=== PATIENT | female | born 1965 | race Caucasian/White ===

== ENCOUNTER 2016-04-23 06:37 | Emergency (ER) | payer OTHER ==
[~2016-04-23] VITALS: Ht 165.1 cm; Wt 76.2 kg
[~2016-04-23 06:37] MED LIST: AMOXIL500 MG PO; ANAFRANIL25 MG PO; ATIVAN0.5 MG PO; CIPRODEX 0.3%-7.5 ML TOP; CORTISPORIN TC10 ML OOTO; IBUPROFEN800 MG PO; LEXAPRO 10MG10 MG PO; MEDROL DOSEPAK1 PAC PO; MOTRIN800 MG PO; OMNICEF300 MG PO; PERCOCET 325 MG1 TA2 PO; SEROQUEL300 MG PO; VALIUM2 MG PO; VIBRAMYCIN 100100 MG PO; VITAB121000 PO
--- NOTE | 2016-04-23 07:27 | ED GI/GU/ABDOMINAL COMPLAINT ---
History of Present Illness General Chief Complaint: General Adult Stated Complaint: SIB URGENT CARE FOR BOWEL OBSTRUCTION Source: patient, family Exam Limitations: no limitations Vital Signs & Intake/Output Vital Signs & Intake/Output Vital Signs Date Time Temp Pulse Resp B/P Pulse O2 O2 Flow FiO2 Ox Delivery Rate 04/23 0655 Room Air 04/23 0650 97.4 100 20 125/75 98 Room Air Allergies Coded Allergies: NO KNOWN ALLERGIES (08/26/14) Reconcile Medications Clomipramine HCl (Anafranil) 25 MG CAPSULE 3 CAP PO QPM OCD (Reported) Escitalopram Oxalate (Lexapro 10MG) 10 MG TABLET 40 MG PO QPM MENTAL HEALTH ( Reported) Lorazepam (Ativan) 0.5 MG TAB 1 TAB PO 4 TIMES/DAY PRN ANXIETY (Reported) Methadone Hydrochloride (Methadone HCl) 10 MG TABLET 95 TAB PO DAILY UNKNOWN (Reported) Polyethylene Glycol 3350 (Miralax) 17 GRAM/DOSE POWDER 17 GM PO DAILY CONSTIPATION mix with water, juice, soda, coffee or tea Quetiapine Fumarate (Seroquel) 300 MG TAB 1 TAB PO QPM SLEEP (Reported) Sennosides (Senna) 8.6 MG TABLET 2 TAB PO BID CONSTIPATION Triage Note: PT TO TRIAGE SENT IN BY URGENT CARE FOR BOWEL OBSTRUCTION. PT STATES SHE WAS AT URGENT CARE TWO DAYS AGO, TRIED STOOL SOFTENERS AND NOTHING HAS BEEN BETTER. PT ALSO C/O DIFFICULTY URINATING. STATES "IT IS UNCOMFORTABLE, NOT NECESSARILY PAIN." DENIES N/V. Triage Nurses Notes Reviewed? yes ? N Is pt currently ? No Onset: Gradual Duration: week(s): (2) Timing: recent history Quality/Severity: moderate Location: generalized abdomen Activities at Onset: none Prior Abdominal Problems: none No Modifying Factors: none HPI: This is a 50-year-old female who presents with a two-week history of abdominal distention, constipation. She states that she does not eat much but she is afraid she is obstructed. 2 days ago she was seen at an urgent care center and had an x-ray done. They told her her bowels looked obstructed but it wasn't life-threatening. He is been trying to take prune juice, MiraLAX and over-the- counter stool softeners. She'll then tried [id number] enemas without relief. Patient is on chronic methadone maintenance 95 mg daily. Denies any fever or chills. Denies any weight loss. History of appendectomy and partial colon resection 10 years ago. She's never had a colonoscopy. Past History Travel History Traveled to [place] past 21 day No Medical History Any Pertinent Medical History? 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 No Review of Systems Review of Systems Constitutional: Denies: chills, fever. EENTM: Reports: no symptoms. Respiratory: Denies: cough. Cardiovascular: Denies: chest pain, palpitations. GI: Reports: abdominal pain, bloating, constipation, nausea. Denies: vomiting. Genitourinary: Denies: discharge, dysuria. Musculoskeletal: Reports: no symptoms. Skin: Reports: no symptoms. Neurological/Psychological: Reports: anxiety. Hematologic/Endocrine: Denies: bruising, bleeding. Immunologic/Allergic: Denies: splenectomy. All Other Systems: Reviewed and Negative Physical Exam Physical Exam General Appearance: well developed/nourished, no apparent distress, alert, awake , anxious Head: atraumatic, normal appearance Eyes: Bilateral: normal appearance, PERRL, EOMI. Ears, Nose, Throat, Mouth: hearing grossly normal, moist mucous membrane Neck: normal inspection, supple, full range of motion Respiratory: normal breath sounds, chest non-tender, no respiratory distress Cardiovascular: regular rate/rhythm Peripheral Pulses: 2+ radial (R), 2+ radial (L) Gastrointestinal: normal bowel sounds, soft, non-tender Back: normal inspection, normal range of motion Extremities: normal range of motion Neurologic/Psych: no motor/sensory deficits, awake, alert, oriented x 3 Skin: intact, normal color, warm/dry Core Measures ACS in differential dx? No Severe Sepsis Present: No Septic Shock Present: No Progress Differential Diagnosis: bowel obstruction, OPIATE INDUCED CONSTIPATION, MALIGNANCY Plan of Care: Orders Procedure Date/time Status URINALYSIS 04/23 734 Complete HUMAN BETA HCG SCREEN 04/23 734 Complete COMPREHENSIVE METABOLIC PANEL 04/23 734 Complete CBC WITHOUT DIFFERENTIAL 04/23 734 Complete Laboratory Tests 04/23/16 0816: Anion Gap 7, Estimated GFR > 60, BUN/Creatinine Ratio 8.3, Glucose 78, Calcium 10.3 H, Total Bilirubin 0.5, AST 32, ALT 40, Alkaline Phosphatase 82, Total Protein 8.1, Albumin 4.6, Globulin 3.5, Albumin/Globulin Ratio 1.3, Total Beta HCG NEGATIVE, CBC w Diff MAN DIFF ORDERED, RBC 4.63, MCV 93.1, MCH 31.7 H, RDW 14.6 H, MPV 8.8, Gran % 59.0, Lymphocytes % 34.1, Monocytes % 6.5, Eosinophils % 0, Basophils % 0.4, Absolute Granulocytes 7.0 H, Absolute Lymphocytes 4.0 H, Absolute Monocytes 0.8 H, Absolute Eosinophils 0, Absolute Basophils 0.1, Platelet Estimate VERIFIED BY SMEAR, Anisocytosis 1+, Stomatocytes 1+, PUBS MCHC 34.1 04/23/16 0808: Urine Color YEL, Urine Clarity CLEAR, Urine pH 7.5, Ur Specific [place] 1.015, Urine Protein NEG, Urine Ketones NEG, Urine Nitrite NEG, Urine Bilirubin NEG, Urine Urobilinogen 0.2, Ur Leukocyte Esterase NEG, Ur Microscopic EXAM NOT REQUIRED, Urine Hemoglobin NEG, Urine Glucose NEG Diagnostic Imaging: Viewed by Me: CT Scan. Discussed w/RAD: CT Scan. Initial ED EKG: none Comments: PATIENT: GERALDO FOX PRESENT AGE: 50 PATIENT ACCOUNT NO: [id number] : 66 LOCATION: [facility] ORDERING PHYSICIAN: LESLI WEI MD SERVICE DATE: 04/23/16 EXAM TYPE: CAT - CT ABD & PELVIS W IV CONTRAST EXAMINATION: CT ABDOMEN AND PELVIS WITH CONTRAST CLINICAL INFORMATION: 50-year-old woman with abdominal distention and constipation. COMPARISON: 01/31/[address] TECHNIQUE: Multidetector volumetric imaging was performed of the abdomen and pelvis after the IV administration of 95 mL of Optiray 320 intravenous contrast. Sagittal and coronal reformatted images were obtained on the technologist's workstation. DLP: 380 mGy-cm FINDINGS: Minimal dependent changes are noted at the lung bases. There is a small hiatal hernia. There is diffuse fatty infiltration of the liver with focal sparing around the gallbladder fossa. There is a 1.5 cm hypodense lesion just above the gallbladder fossa that is unchanged and could potentially reflect a hemangioma. The spleen, pancreas, adrenals, kidneys, and gallbladder enhance normally and demonstrate no discrete anatomic abnormality. Nondilated loops of large and small bowel are notable only for a moderate fecal load seen throughout the colon. The terminal ileum is not inflamed and there has been prior appendectomy. The patient has had a prior hysterectomy. Adnexal structures and the bladder are normal in appearance. IMPRESSION: No acute intra-abdominal process. Moderate constipation. DICTATED BY: INDER COULTER MD DATE/TIME DICTATED:04/23/161013 VISUAL JOURNALIST:[place] DATE/TIME TRANSCRIBED:04/23/161013 CONFIDENTIAL, DO NOT COPY WITHOUT APPROPRIATE AUTHORIZATION. <Electronically signed in Other Vendor System> SIGNED BY: INDER COULTER MD 04/23/16 1024 Departure Departure Time of Disposition: 1036 Disposition: HOME OR SELF CARE Condition: Stable Clinical Impression Primary Impression: Constipation Referrals: PATIENT HAS NO PRIMARY CARE DR (PCP/Family) Additional Instructions: TAKE MIRALAX OVER THE COUNTER AND SENEKOT DIRECTED. FOLLOW UP WITH YOUR DOCTOR IN THE OFFICE. RETURN IF WORSE. Departure Forms: Customer Survey General Discharge Information Prescriptions: Current Visit Scripts Sennosides (Senna) 2 TAB PO BID #100 TAB Polyethylene Glycol 3350 (Miralax) 17 GM PO DAILY #255 GM mix with water, juice, soda, coffee or tea
[2016-04-23 08:34] LABS: ABSOLUTE BASOPHIL COUNT 0.1 /CUMM (0.0-0.2); ABSOLUTE EOSINOPHIL COUNT 0 /CUMM (0.0-0.7); ABSOLUTE MONOCYTE COUNT 0.8 /CUMM (0.10-0.60); BASOPHIL % 0.4 % (0.0-2.0); EOSINOPHIL % 0 % (0-5); HEMATOCRIT 43.1 % (37-47); MEAN CORPUSCULAR HGB 31.7 PG (27.0-31.0); MEAN CORPUSCULAR HGB CONC 34.1 G/DL (33.0-37.0); MEAN CORPUSCULAR VOLUME 93.1 FL (81.0-99.0); MEAN PLATELET VOLUME 8.8 FL (7.4-10.4); PLATELET COUNT 329 /CUMM (130-400); RBC DISTRIBUTION WIDTH 14.6 % (11.5-14.5); RED BLOOD CELL CT 4.63 /CUMM (4.20-5.40); WHITE BLOOD CELL COUNT 11.8 /CUMM (4.8-10.8)
[2016-04-23] MEDS ORDERED: METHADONE HCL10 M1 PO (08:42)
--- NOTE | 2016-04-23 10:24 | CT SCAN REPORT ---
EXAMINATION: CT ABDOMEN AND PELVIS WITH CONTRAST CLINICAL INFORMATION: 50-year-old woman with abdominal distention and constipation. COMPARISON: 01/31/[address] TECHNIQUE: Multidetector volumetric imaging was performed of the abdomen and pelvis after the IV administration of 95 mL of Optiray 320 intravenous contrast. Sagittal and coronal reformatted images were obtained on the technologist's workstation. DLP: 380 mGy-cm FINDINGS: Minimal dependent changes are noted at the lung bases. There is a small hiatal hernia. There is diffuse fatty infiltration of the liver with focal sparing around the gallbladder fossa. There is a 1.5 cm hypodense lesion just above the gallbladder fossa that is unchanged and could potentially reflect a hemangioma. The spleen, pancreas, adrenals, kidneys, and gallbladder enhance normally and demonstrate no discrete anatomic abnormality. Nondilated loops of large and small bowel are notable only for a moderate fecal load seen throughout the colon. The terminal ileum is not inflamed and there has been prior appendectomy. The patient has had a prior hysterectomy. Adnexal structures and the bladder are normal in appearance. IMPRESSION: No acute intra-abdominal process. Moderate constipation.
[2016-04-23] MEDS ORDERED: MIRALAX119 GM PO (10:38)
[2016-04-23] MEDS ORDERED: SENNA8.6 M3 PO (10:38)
[2016-04-23 10:50] VITALS: BP 118/70
== END 2016-04-23 11:04 ==
LOC: ERH 06:37
PROVIDERS: Emergency Medicine
DX: K59.00 Constipation, unspecified (principal)
CPT/HCPCS: 74177; 81003; 96360

== ENCOUNTER 2016-04-30 23:07 | Emergency (ER) | payer OTHER ==
[~2016-04-30] VITALS: Ht 165.1 cm; Wt 72.6 kg
[~2016-04-30 23:07] MED LIST changes: +METHADONE HCL10 M1 PO; +MIRALAX119 GM PO; +SENNA8.6 M3 PO
--- NOTE | 2016-04-30 23:31 | ED GI/GU/ABDOMINAL COMPLAINT ---
History of Present Illness General Chief Complaint: Abdominal Pain/Flank Pain Stated Complaint: ABD PAIN Source: patient, family, old records Exam Limitations: no limitations Allergies Coded Allergies: NO KNOWN ALLERGIES (08/26/14) Reconcile Medications Clomipramine HCl (Anafranil) 25 MG CAPSULE 3 CAP PO QPM OCD (Reported) Escitalopram Oxalate (Lexapro 10MG) 10 MG TABLET 40 MG PO QPM MENTAL HEALTH ( Reported) Lorazepam (Ativan) 0.5 MG TAB 1 TAB PO 4 TIMES/DAY PRN ANXIETY (Reported) Methadone Hydrochloride (Methadone HCl) 10 MG TABLET 95 TAB PO DAILY UNKNOWN (Reported) Peg 3350/Na Sulf,Bicarb,Cl/KCl (Golytely Solution) 236-22.74G SOLN.RECON 1 KIT PO X1 PRN CONSTIPATION Polyethylene Glycol 3350 (Miralax) 17 GRAM/DOSE POWDER 17 GM PO DAILY CONSTIPATION mix with water, juice, soda, coffee or tea Quetiapine Fumarate (Seroquel) 300 MG TAB 1 TAB PO QPM SLEEP (Reported) Sennosides (Senna) 8.6 MG TABLET 2 TAB PO BID CONSTIPATION Triage Note: PT TO TRIAGE C/O ABD PAIN AND CONSTIPATION. PT WAS SEEN HERE RECENTLY AND THEY TOLD "TO TRY OTC ENEMAS." PT UNABLE TO RECALL LAST BM. Triage Nurses Notes Reviewed? yes ? n Is pt currently ? No HPI: Patient is a 50-year-old female presents complaining of constipation. Patient reports that she has not had a bowel movement for approximately 1.5-2 weeks. Patient was seen in the emergency department on April 23, had a CT scan which showed constipation, was negative for obstruction and was discharged on over-the -counter medication. Patient reports she has been taking MiraLAX, magnesium citrate, senna, has used 2 enemas with no improvement. Minimal stool passed today. Positive flatus. Intermittent abdominal pain, none currently. Patient takes methadone daily, reports that she has had chronic constipation. Occasional nausea. Intermittent subjective fevers. Patient denies vomiting. (JOANNE GLEZ,MIKE) Vital Signs & Intake/Output Vital Signs & Intake/Output Vital Signs Date Time Temp Pulse Resp B/P Pulse O2 O2 Flow FiO2 Ox Delivery Rate 05/01 0328 97.4 80 18 150/88 97 Room Air 05/01 0130 97.3 92 18 147/83 98 Room Air 05/01 0006 Room Air 04/30 2328 97.8 88 18 166/94 97 Room Air ED Intake and Output 05/01 0000 04/30 1200 Intake Total 0 Output Total Balance 0 Intake, Oral 0 Patient 160 lb Weight Past History Travel History Traveled to [place] past 21 day No Medical History Any Pertinent Medical History? 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 No (MIKE GROVER) Review of Systems Review of Systems Constitutional: Reports: fever (subjective). Denies: chills. EENTM: Reports: no symptoms. Respiratory: Denies: cough, short of breath. Cardiovascular: Denies: chest pain. GI: Reports: see HPI. Genitourinary: Reports: no symptoms. Musculoskeletal: Reports: no symptoms. Skin: Reports: no symptoms. Neurological/Psychological: Reports: anxiety. Hematologic/Endocrine: Reports: no symptoms. Immunologic/Allergic: Reports: no symptoms. (MIKE GROVER) Physical Exam Physical Exam General Appearance: well developed/nourished, alert, awake Head: atraumatic, normal appearance Eyes: Bilateral: normal appearance, PERRL, EOMI. Ears, Nose, Throat, Mouth: hearing grossly normal, moist mucous membrane Neck: normal inspection, supple, full range of motion Respiratory: normal breath sounds, chest non-tender, no respiratory distress, lungs clear Cardiovascular: regular rate/rhythm Gastrointestinal: normal bowel sounds, soft, mild distention. nontender, no guarding, no rebound, no rigidity Back: normal inspection, normal range of motion Extremities: normal range of motion Neurologic/Psych: no motor/sensory deficits, awake, alert, oriented x 3, normal gait, normal mood/affect Skin: intact, normal color, warm/dry Core Measures ACS in differential dx? No Severe Sepsis Present: No Septic Shock Present: No (MIKE GROVER) Progress Differential Diagnosis: sbo, constipation, intra-abdominal infection Diagnostic Imaging: Viewed by Me: Radiology Read. Discussed w/RAD: Radiology Read. Radiology Impression: PATIENT: GERALDO FOX PRESENT AGE: 50 PATIENT ACCOUNT NO: [id number] : 67 LOCATION: [facility] ORDERING PHYSICIAN: MIKE GLEZ SERVICE DATE: 04/30/16 EXAM TYPE: RAD - [id number] VIEWS EXAMINATION: XR ABDOMEN MULTIPLE VIEWS CLINICAL INDICATION: Abdominal distention, minimal bowel movement for 1 to 2 weeks COMPARISON: CT 04/23/2016 TECHNIQUE: AP supine and upright radiographs of the abdomen. FINDINGS: No evidence of intra-abdominal free air. The bowel gas pattern is nonobstructive. There is a large amount of stool in the colon. Visualized lung bases are grossly clear. No acute osseous findings are seen. IMPRESSION: Large volume of stool. Nonobstructive bowel gas pattern. DICTATED BY : JACQUES GONZALES MD DATE/TIME DICTATED:05/01/1640 MATERIALS PLANNING MANAGER: [place] DATE/TIME TRANSCRIBED:05/01/1640 CONFIDENTIAL, DO NOT COPY WITHOUT APPROPRIATE AUTHORIZATION. <Electronically signed in Other Vendor System> SIGNED BY: JACQUES GONZALES MD 05/01/1645 Initial ED EKG: none (MIKE GROVER) Plan of Care: Orders Procedure Date/time Status Enema 05/018 Active URINALYSIS 04/30 2319 Complete LIPASE 04/30 2319 Complete HEPATIC FUNCTION PANEL 04/30 2319 Complete CBC WITHOUT DIFFERENTIAL 04/30 2319 Complete BASIC METABOLIC PANEL 04/30 2319 Complete AMYLASE 04/30 2319 Complete Laboratory Tests 05/01/16 0002: Urinalysis LIGHT H, Urine Color YEL, Urine Clarity HAZY H, Urine pH 6.0, Ur Specific [place] >= 1.030, Urine Protein NEG, Urine Ketones NEG, Urine Nitrite NEG, Urine Bilirubin NEG, Urine Urobilinogen 0.2, Ur Leukocyte Esterase NEG, Ur Microscopic SEDIMENT EXAMINED, Urine RBC 3-5, Urine WBC 1-3 H, Ur Epithelial Cells MOD H, Urine Mucus FEW, Urine Hemoglobin TRACE-INTACT, Urine Glucose NEG 05/01/16 0001: Anion Gap 13, Estimated GFR > 60, BUN/Creatinine Ratio 11.7, Glucose 92, Calcium 10.2, Total Bilirubin 0.4, Direct Bilirubin 0.4, AST 25, ALT 37, Alkaline Phosphatase 72, Total Protein 7.4, Albumin 4.2, Amylase 53, Lipase 105, CBC w Diff MAN DIFF ORDERED, RBC 4.59, MCV 92.4, MCH 31.7 H, RDW 14.4, MPV 9.0, Gran % 50.1, Lymphocytes % 43.1, Monocytes % 5.8, Eosinophils % 0.1, Basophils % 0.9, Absolute Granulocytes 6.0, Segmented Neutrophils 42 L, Absolute Lymphocytes 5.2 H, Lymphocytes 49, Monocytes 7, Absolute Monocytes 0.7 H, Absolute Eosinophils 0, Basophils 2, Absolute Basophils 0.1, Platelet Estimate ADEQUATE, Polychromasia 1+, Ovalocytes FEW, Stomatocytes FEW, PUBS MCHC 34.3, Fld Total RBCs Counted 110 05/01/2016 12:34:47 AM: X-ray reviewed. Significant stool burden, no signs of bowel obstruction. No peritoneal signs on exam. Patient afebrile, no episodes of vomiting. Soap suds enema ordered. WBC 12.0, similar to when patient was seen in the ED 1 week ago[address] Patient had [address] scan at that time which was unremarkable for obstruction or infectious pathology. (MIKE GROVER) Departure Departure Disposition: HOME OR SELF CARE Condition: Stable Clinical Impression Primary Impression: Constipation due to opioid therapy Referrals: DANGELO REYES MD PATIENT HAS NO PRIMARY CARE DR (PCP/Family) Additional Instructions: Take Colace daily. Follow up with Dr. Reyes to establish a primary doctor and for further evaluation. Discuss your problems with constipation with your Methadone prescriber. Return to the ER if fevers, vomiting or worsening of symptoms. Departure Forms: Customer Survey General Discharge Information Prescriptions: Current Visit Scripts Peg 3350/Na Sulf,Bicarb,Cl/KCl (Golytely Solution) 1 KIT PO X1 PRN CONSTIPATION #1 BOT (MIKE GROVER) PA/SAFETY SUPERVISOR Co-Sign Statement Statement: ED Attending supervision documentation- [X] I saw and evaluated the patient. I have also reviewed all the pertinent lab results and diagnostic results. I agree with the findings and the plan of care as documented in the PA's/SAFETY SUPERVISOR's documentation. 2.13.17, 3:24M...pt feels well and would like to go home. She has had small amounts of stooling. labs benign. will continue with laxatives, will follow up if not feeling better. [] I have reviewed the ED Record and agree with the PA's/SAFETY SUPERVISOR's documentation. [] Additions or exceptions (if any) to the PAs/SAFETY SUPERVISOR's note and plan are summarized below: [] (LEE JOHNSON,YOVANA Felix)
[2016-05-01 00:17] LABS: ABSOLUTE BASOPHIL COUNT 0.1 /CUMM (0.0-0.2); ABSOLUTE EOSINOPHIL COUNT 0 /CUMM (0.0-0.7); ABSOLUTE LYMPH COUNT 5.2 /CUMM (1.2-3.4); ABSOLUTE MONOCYTE COUNT 0.7 /CUMM (0.10-0.60); BASOPHIL % 0.9 % (0.0-2.0); EOSINOPHIL % 0.1 % (0-5); GRANULOCYTE % 50.1 % (42.2-75.2); HEMATOCRIT 42.4 % (37-47); MEAN CORPUSCULAR HGB 31.7 PG (27.0-31.0); MEAN CORPUSCULAR HGB CONC 34.3 G/DL (33.0-37.0); MEAN CORPUSCULAR VOLUME 92.4 FL (81.0-99.0); PLATELET COUNT 291 /CUMM (130-400); RBC DISTRIBUTION WIDTH 14.4 % (11.5-14.5); RED BLOOD CELL CT 4.59 /CUMM (4.20-5.40)
[2016-05-01] MEDS ORDERED: GOLYTELY SOLU4000 ML PO (00:46)
--- NOTE | 2016-05-01 00:46 | RADIOLOGY REPORT ---
EXAMINATION: XR ABDOMEN MULTIPLE VIEWS CLINICAL INDICATION: Abdominal distention, minimal bowel movement for 1 to 2 weeks COMPARISON: CT 04/23/2016 TECHNIQUE: AP supine and upright radiographs of the abdomen. FINDINGS: No evidence of intra-abdominal free air. The bowel gas pattern is nonobstructive. There is a large amount of stool in the colon. Visualized lung bases are grossly clear. No acute osseous findings are seen. IMPRESSION: Large volume of stool. Nonobstructive bowel gas pattern.
[2016-05-01 03:28] VITALS: BP 150/88
== END 2016-05-01 03:31 ==
LOC: ERH 23:07
PROVIDERS: Pediatrics
DX: T40.605A Adverse effect of unspecified narcotics, initial encounter (principal)
CPT/HCPCS: 74020; 81001

== ENCOUNTER 2016-05-28 11:55 | Emergency (ER) | payer OTHER ==
[~2016-05-28] VITALS: Ht 165.1 cm; Wt 74.8 kg
[~2016-05-28 11:55] MED LIST changes: +GOLYTELY SOLU4000 ML PO
--- NOTE | 2016-05-28 12:05 | ED GI/GU/ABDOMINAL COMPLAINT ---
History of Present Illness General Chief Complaint: Abdominal Pain/Flank Pain Stated Complaint: ABD PAIN Source: patient Exam Limitations: no limitations Vital Signs & Intake/Output Vital Signs & Intake/Output Vital Signs Date Time Temp Pulse Resp B/P Pulse O2 O2 Flow FiO2 Ox Delivery Rate 05/28 1158 96.4 88 20 149/92 98 Room Air Allergies Coded Allergies: NO KNOWN ALLERGIES (05/28/16) Reconcile Medications Clomipramine HCl (Anafranil) 25 MG CAPSULE 3 CAP PO QPM OCD (Reported) Escitalopram Oxalate (Lexapro 10MG) 10 MG TABLET 40 MG PO QPM MENTAL HEALTH ( Reported) Lorazepam (Ativan) 0.5 MG TAB 1 TAB PO 4 TIMES/DAY PRN ANXIETY (Reported) Methadone Hydrochloride (Methadone HCl) 10 MG TABLET 95 TAB PO DAILY UNKNOWN (Reported) Peg 3350/Na Sulf,Bicarb,Cl/KCl (Golytely Solution) 236-22.74G SOLN.RECON 1 KIT PO X1 PRN CONSTIPATION Polyethylene Glycol 3350 (Miralax) 17 GRAM/DOSE POWDER 17 GM PO DAILY CONSTIPATION mix with water, juice, soda, coffee or tea Quetiapine Fumarate (Seroquel) 300 MG TAB 1 TAB PO QPM SLEEP (Reported) Sennosides (Senna) 8.6 MG TABLET 2 TAB PO BID CONSTIPATION Triage Note: TRIAGE: PT TO ER C/C RECTAL AND ABD PAIN. ONSET YESTERDAY. -N/V/D. LNBM YESTERDAY. REPORTS HAS URINARY S/S OF FEELING LIKE SHE HAS TO GO A LOT BUT DOESN'T HAVE MUCH TO GO. URINARY S/S X ABOUT A MONTH. WAS TREATED FOR UTI TWICE. ALSO HAS HAD RASH "ALL OVER MY BODY AND LEGS" X 1 MONTH. WAS GIVEN CREAM FOR EZCEMA. Triage Nurses Notes Reviewed? yes ? N Is pt currently ? No Onset: Abrupt Duration: day(s): (2) Quality/Severity: dullness, fullness Location: left lower quadrant, right lower quadrant, suprapubic, RECTAL Activities at Onset: none No Modifying Factors: none Associated Symptoms: abdominal pain HPI: 50 year old female who presents to the ER for chief complaint of lower abdominal pain and rectal pain. She reports urinary frequency and feels the need to have a BM. She reports taking over louis counter prunes, enemas as well as a medication prescribed to her for constipation induced opioid constipation. She is currently on methadone maintenance. Past History Travel History Traveled to [place] past 21 day No Medical History Any Pertinent Medical History? see below for history Neurological: NONE EENT: NONE Cardiovascular: NONE Respiratory: NONE Gastrointestinal: GERD Hepatic: NONE Renal: NONE Musculoskeletal: NONE Psychiatric: depression, opioid dependence (on methadone) Endocrine: NONE Blood Disorders: NONE Cancer(s): NONE ELDERLY COMPANION/Reproductive: NONE Surgical History Surgical History: APPY, HYSTERECTOMY PARTIAL COLON RESECTION Psychosocial History Who do you live with Significant Other Services at Home None What is your primary language Bhutanese Tobacco Use: Current Daily Use Daily Tobacco Use Amount/Type: => 5 Cigarettes daily ETOH Use: denies use Illicit Drug Use: denies illicit drug use Family History Hx Contributory? No Review of Systems Review of Systems Constitutional: Denies: chills, fever. EENTM: Reports: no symptoms. Respiratory: Denies: cough, short of breath. Cardiovascular: Denies: chest pain, palpitations. GI: Reports: abdominal pain, bloating, diarrhea. Genitourinary: Reports: frequency. Musculoskeletal: Reports: no symptoms. Skin: Reports: no symptoms. Neurological/Psychological: Reports: anxiety. Hematologic/Endocrine: Denies: bruising, bleeding, polyuria, polydipsia. Immunologic/Allergic: Denies: splenectomy. All Other Systems: Reviewed and Negative Physical Exam Physical Exam General Appearance: well developed/nourished, alert, awake, anxious, mild distress Head: atraumatic, normal appearance Eyes: Bilateral: normal appearance, PERRL, EOMI. Ears, Nose, Throat, Mouth: hearing grossly normal, moist mucous membrane Neck: normal inspection, supple, full range of motion Respiratory: normal breath sounds, chest non-tender, no respiratory distress Cardiovascular: regular rate/rhythm Peripheral Pulses: 2+ radial (R), 2+ radial (L) Gastrointestinal: normal bowel sounds, soft, non-tender Extremities: normal range of motion Neurologic/Psych: no motor/sensory deficits, awake, alert, normal gait Core Measures ACS in differential dx? No Severe Sepsis Present: No Septic Shock Present: No Progress Differential Diagnosis: SBO, CONSTIPATION Plan of Care: Orders Procedure Date/time Status LACTIC ACID 05/28 1514 Active XRY-ABD MULTI VIEW W/PA CHEST 05/28 1214 Active URINALYSIS 05/28 1214 Complete LIPASE 05/28 1214 Complete LACTIC ACID 05/28 1213 Complete C-REACTIVE PROTEIN 05/28 1213 Complete COMPREHENSIVE METABOLIC PANEL 05/28 1213 Complete CBC WITHOUT DIFFERENTIAL 05/28 1213 Complete Current Medications Sig/Eri Start time Last Medication Dose Stop Time Status Admin Oxycodone/ 1 TAB ONCE ONE 05/28 1415 UNVr Acetaminophen 05/28 1416 (Percocet) Laboratory Tests 05/28/16 1311: Urine Color YEL, Urine Clarity CLEAR, Urine pH 6.0, Ur Specific [place] >= 1.030 , Urine Protein NEG, Urine Ketones NEG, Urine Nitrite NEG, Urine Bilirubin NEG, Urine Urobilinogen 0.2, Ur Leukocyte Esterase NEG, Ur Microscopic EXAM NOT REQUIRED, Urine Hemoglobin NEG, Urine Glucose NEG 05/28/16 1245: Anion Gap 12, Estimated GFR > 60, BUN/Creatinine Ratio 13.3, Glucose 90, Lactic Acid 1.7, Calcium 9.6, Total Bilirubin 0.4, AST 57 H, ALT 62 H, Alkaline Phosphatase 105, C-Reactive Prot, Quant 5.0 H, Total Protein 7.2, Albumin 3.9, Globulin 3.3, Albumin/Globulin Ratio 1.2, Lipase 63, CBC w Diff NO MAN DIFF REQ, RBC 4.19 L, MCV 93.5, MCH 31.3 H, RDW 14.1, MPV 9.1, Gran % 53.0, Lymphocytes % 39.5, Monocytes % 7.1, Eosinophils % 0.1, Basophils % 0.3, Absolute Granulocytes 5.8, Absolute Lymphocytes 4.3 H, Absolute Monocytes 0.8 H, Absolute Eosinophils 0, Absolute Basophils 0, PUBS MCHC 33.5 Diagnostic Imaging: Viewed by Me: Radiology Read. Discussed w/RAD: Radiology Read. Initial ED EKG: none Comments: PATIENT: GERALDO FOX PRESENT AGE: 50 PATIENT ACCOUNT NO: [id number] : 66 LOCATION: [facility] ORDERING PHYSICIAN: LESLI WEI MD SERVICE DATE: 05/28/16 EXAM TYPE: RAD - XRY-ABD MULTI VIEW W/PA CHEST EXAMINATION: XR ABDOMEN WITH PA CHEST CLINICAL INDICATION: Lower abdominal pain/cramping. Assess for obstruction. COMPARISON: Abdominal radiography 04/21/2016. TECHNIQUE: 2 views of the abdomen and one view of the chest were obtained. FINDINGS: No pneumoperitoneum. No portal venous gas. No dilated loops of large or small bowel. Small to moderate volume of stool throughout the colon. No new suspicious abdominal calcifications. Unchanged subcentimeter calcific foci over the bilateral iliac bones. Visualized portions of the lungs demonstrate no lobar consolidation suspicious for pneumonia or pulmonary edema. IMPRESSION: Nonobstructive bowel gas pattern. Small to moderate volume of stool within the colon. DICTATED BY: EASTON KUMAR MD DATE/TIME DICTATED:05/28/161350 VALUE STREAM COACH:[place] DATE/TIME TRANSCRIBED:05/28/161350 CONFIDENTIAL, DO NOT COPY WITHOUT APPROPRIATE AUTHORIZATION. <Electronically signed in Other Vendor System> SIGNED BY: EASTON KUMAR MD 05/28/16 1416 Departure Departure Time of Disposition: 1401 Disposition: HOME OR SELF CARE Condition: Stable Clinical Impression Primary Impression: Chronic abdominal pain Secondary Impressions: Constipation Referrals: PATIENT HAS NO PRIMARY CARE DR (PCP/Family) Additional Instructions: TAKE THE GOLYTELY AT HOME AND USE OVER THE COUNTER ENEMAS. FOLLOW UP WITH YOUR GI APPOINTMENT WITH DR BAEZ IN THE OFFICE. Departure Forms: Customer Survey General Discharge Information
[2016-05-28 12:56] LABS: ABSOLUTE EOSINOPHIL COUNT 0 /CUMM (0.0-0.7); ABSOLUTE LYMPH COUNT 4.3 /CUMM (1.2-3.4); EOSINOPHIL % 0.1 % (0-5); HEMATOCRIT 39.2 % (37-47); MEAN PLATELET VOLUME 9.1 FL (7.4-10.4)
[2016-05-28 13:00] LABS: ABSOLUTE BASOPHIL COUNT 0 /CUMM (0.0-0.2); ABSOLUTE GRANULOCYTE CT 5.8 /CUMM (1.4-6.5); ABSOLUTE MONOCYTE COUNT 0.8 /CUMM (0.10-0.60); BASOPHIL % 0.3 % (0.0-2.0); MEAN CORPUSCULAR HGB 31.3 PG (27.0-31.0); MEAN CORPUSCULAR HGB CONC 33.5 G/DL (33.0-37.0); MEAN CORPUSCULAR VOLUME 93.5 FL (81.0-99.0); PLATELET COUNT 311 /CUMM (130-400); RBC DISTRIBUTION WIDTH 14.1 % (11.5-14.5); RED BLOOD CELL CT 4.19 /CUMM (4.20-5.40); WHITE BLOOD CELL COUNT 10.9 /CUMM (4.8-10.8)
[2016-05-28 14:05] VITALS: BP 140/91
--- NOTE | 2016-05-28 14:16 | RADIOLOGY REPORT ---
EXAMINATION: XR ABDOMEN WITH PA CHEST CLINICAL INDICATION: Lower abdominal pain/cramping. Assess for obstruction. COMPARISON: Abdominal radiography 04/21/2016. TECHNIQUE: 2 views of the abdomen and one view of the chest were obtained. FINDINGS: No pneumoperitoneum. No portal venous gas. No dilated loops of large or small bowel. Small to moderate volume of stool throughout the colon. No new suspicious abdominal calcifications. Unchanged subcentimeter calcific foci over the bilateral iliac bones. Visualized portions of the lungs demonstrate no lobar consolidation suspicious for pneumonia or pulmonary edema. IMPRESSION: Nonobstructive bowel gas pattern. Small to moderate volume of stool within the colon.
== END 2016-05-28 14:29 ==
LOC: ERH 11:55
PROVIDERS: Emergency Medicine
DX: K59.00 Constipation, unspecified (principal)
CPT/HCPCS: 74022; 81003; 96374; 96375; J1885

== ENCOUNTER 2016-06-19 00:15 | Emergency (ER) | payer OTHER ==
[~2016-06-19] VITALS: Ht 165.1 cm; Wt 66.7 kg
--- NOTE | 2016-06-19 00:24 | ED GI/GU/ABDOMINAL COMPLAINT ---
History of Present Illness General Chief Complaint: General Adult Stated Complaint: "CONSTIPATION FOR COUPLE OF MONTHSFEEL DEHYDRATED" Source: patient Exam Limitations: no limitations Vital Signs & Intake/Output Vital Signs & Intake/Output Vital Signs Date Time Temp Pulse Resp B/P Pulse O2 O2 Flow FiO2 Ox Delivery Rate 06/20 35 97 Room Air 06/19 33 98.3 89 18 173/72 100 Room Air Allergies Coded Allergies: NO KNOWN ALLERGIES (05/28/16) Reconcile Medications Clomipramine HCl (Anafranil) 25 MG CAPSULE 3 CAP PO QPM OCD (Reported) Escitalopram Oxalate (Lexapro 10MG) 10 MG TABLET 40 MG PO QPM MENTAL HEALTH ( Reported) Hydrocortisone 2.5 % OINT...G. 1 TRISTAN TOP TID PRN RASH apply to affected area(s) X 7 DAYS MAX Hydrocortisone/Pramoxine (Proctofoam-Hc 1%-1% Foam) 1 %-1 % FOAM 1 A RC BID PRN IRRITATED RECTUM Lorazepam (Ativan) 0.5 MG TAB 1 TAB PO 4 TIMES/DAY PRN ANXIETY (Reported) Methadone Hydrochloride (Methadone HCl) 10 MG TABLET 95 TAB PO DAILY UNKNOWN (Reported) Peg 3350/Na Sulf,Bicarb,Cl/KCl (Golytely Solution) 236-22.74G SOLN.RECON 1 KIT PO X1 PRN CONSTIPATION Polyethylene Glycol 3350 (Miralax) 17 GRAM/DOSE POWDER 17 GM PO DAILY CONSTIPATION mix with water, juice, soda, coffee or tea Quetiapine Fumarate (Seroquel) 300 MG TAB 1 TAB PO QPM SLEEP (Reported) Sennosides (Senna) 8.6 MG TABLET 2 TAB PO BID CONSTIPATION Triage Nurses Notes Reviewed? yes ? n Is pt currently ? No Onset: Gradual Duration: week(s):, waxing and waning Timing: recent history Location: generalized abdomen Radiation: rectal irritation. "I feel something." Activities at Onset: pt drank a bottle of mag citrate Prior Abdominal Problems: similar symptoms Modifying Factors: Worsens With: defecating. Associated Symptoms: loose watery stools today HPI: 50 yo woman h/o ocd, on methadone, h/o constipation, presents with loose watery stools after drinking a bottle of magnesium citrate earlier today. She notes, "I had loose watery stools today but I still feel irritation in my rectum, like I still have stool there." She has mild abdominal cramps, has no abdominal pain, nausea, vomiting, dysuria, vaginal discharge. She is otherwise well. Past History Travel History Traveled to [place] past 21 day No Medical History Any Pertinent Medical History? 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 No Review of Systems Review of Systems Constitutional: Reports: no symptoms. EENTM: Reports: no symptoms. Respiratory: Reports: no symptoms. Cardiovascular: Reports: no symptoms. GI: Reports: no symptoms. Genitourinary: Reports: no symptoms. Musculoskeletal: Reports: no symptoms. Skin: Reports: no symptoms. Neurological/Psychological: Reports: no symptoms. Hematologic/Endocrine: Reports: no symptoms. Immunologic/Allergic: Reports: no symptoms. All Other Systems: Reviewed and Negative Physical Exam Physical Exam General Appearance: well developed/nourished, mild distress Head: atraumatic, normal appearance Eyes: Bilateral: normal appearance. Ears, Nose, Throat, Mouth: hearing grossly normal, moist mucous membrane Neck: normal inspection, supple, full range of motion Respiratory: normal breath sounds, chest non-tender, no respiratory distress, quiet respiration, lungs clear Cardiovascular: regular rate/rhythm Gastrointestinal: normal bowel sounds, soft, non-tender Rectal: no stool in recal vault. guiac negative Back: normal inspection Extremities: normal range of motion Neurologic/Psych: no motor/sensory deficits, awake, alert, oriented x 3 Skin: intact, normal color, warm/dry Core Measures ACS in differential dx? No Severe Sepsis Present: No Septic Shock Present: No Progress Differential Diagnosis: constipation vs hemorrhoids vs laxative abuse vs other. Plan of Care: rectal exam benign... labs x 3 this year were all benign... discussed at length with patient... pt will pursue gentle diet for next 24 hours... if not improved, pt to return to ED for further care. Initial ED EKG: none Departure Departure Disposition: HOME OR SELF CARE Condition: Stable Clinical Impression Primary Impression: Chronic abdominal pain Secondary Impressions: Frequent use of laxatives, Rash Referrals: PATIENT HAS NO PRIMARY CARE DR (PCP/Family) Departure Forms: Customer Survey General Discharge Information Prescriptions: Current Visit Scripts Hydrocortisone/Pramoxine (Proctofoam-Hc 1%-1% Foam) 1 A RC BID PRN IRRITATED RECTUM #10 GM Ref 1 Hydrocortisone 1 TRISTAN TOP TID PRN RASH #30 GM apply to affected area(s) X 7 DAYS MAX Comments pt with benign labs x 3 this year. Benign exam. No stool in rectal vault... Likely patient having side effects with excessive laxatives... discussed at length with patient. She will follow up with her pmd... She asks for cream for her skin rash, likley eczema, and I will prescribe proctofoam for sensitive rectal region.
[2016-06-19 00:34] VITALS: BP 173/72
[2016-06-19] MEDS ORDERED: PROCTOFOAM-HC 110 GM RC (00:41)
[2016-06-19] MEDS ORDERED: HYDROCORTISO453.6 GM TOP (00:42)
== END 2016-06-19 00:44 ==
LOC: ERH 00:15
DX: G89.29 Other chronic pain (principal); R10.9 Unspecified abdominal pain; R21 Rash and other nonspecific skin eruption; F19.90 Other psychoactive substance use, unspecified, uncomplicated

== ENCOUNTER 2016-07-23 13:41 | Emergency (ER) | payer OTHER ==
[~2016-07-23] VITALS: Ht 165.1 cm; Wt 72.6 kg
[~2016-07-23 13:41] MED LIST changes: +HYDROCORTISO453.6 GM TOP; +PROCTOFOAM-HC 110 GM RC
[2016-07-23 13:55] VITALS: BP 128/85
--- NOTE | 2016-07-23 14:53 | ED GENERAL ADULT ---
History of Present Illness General Chief Complaint: General Adult Stated Complaint: WITHDRAWAL FROM METHADONE Source: patient Exam Limitations: no limitations Allergies Coded Allergies: NO KNOWN ALLERGIES (05/28/16) Reconcile Medications Clomipramine HCl (Anafranil) 25 MG CAPSULE 3 CAP PO QPM OCD (Reported) Escitalopram Oxalate (Lexapro 10MG) 10 MG TABLET 40 MG PO QPM MENTAL HEALTH ( Reported) Hydrocortisone 2.5 % OINT...G. 1 TRISTAN TOP TID PRN RASH apply to affected area(s) X 7 DAYS MAX Hydrocortisone/Pramoxine (Proctofoam-Hc 1%-1% Foam) 1 %-1 % FOAM 1 A RC BID PRN IRRITATED RECTUM Lorazepam (Ativan) 0.5 MG TAB 1 TAB PO 4 TIMES/DAY PRN ANXIETY (Reported) Methadone Hydrochloride (Methadone HCl) 10 MG TABLET 95 TAB PO DAILY UNKNOWN (Reported) Peg 3350/Na Sulf,Bicarb,Cl/KCl (Golytely Solution) 236-22.74G SOLN.RECON 1 KIT PO X1 PRN CONSTIPATION Polyethylene Glycol 3350 (Miralax) 17 GRAM/DOSE POWDER 17 GM PO DAILY CONSTIPATION mix with water, juice, soda, coffee or tea Quetiapine Fumarate (Seroquel) 300 MG TAB 1 TAB PO QPM SLEEP (Reported) Sennosides (Senna) 8.6 MG TABLET 2 TAB PO BID CONSTIPATION Triage Note: PT STATES SHE IS TRYING TO DETOX HERSELF FROM METHADONE, LAST DOSE WAS 1 WEEK AGO 95 MG. PT STATES SHE WAS CONSTIPATED, TOOK MAG CITRATE AND NOW SHE HAS DIARRHEA. PT C/O ABDOMINAL PAIN WITH NAUSEA Triage Nurses Notes Reviewed? yes HPI: This patient is a 50-year-old female who presented to the emergency department today for evaluation of possible withdrawal symptoms from methadone. The patient reported that she was trying to detox herself from methadone. She reported that her last dose from the clinic was last week. She reported that she started having withdrawal symptoms, so her significant other gave her a couple doses of methadone yesterday and a few days ago. The patient is reporting chills, nausea, lower abdominal pain, urinary burning, vaginal discharge which is clear with no odor or itching, and weakness. The patient reported that she was told that if she needs more methadone she needs to be admitted to the hospital, so she came to the emergency department. She also reported approximately 45 minutes of intermittent, midsternal chest pain which came and went on its own without any intervention. No difficulty breathing. No fevers. She does report constipation. (FRANCISCO PEREZ PA-C) Vital Signs & Intake/Output Vital Signs & Intake/Output Vital Signs Date Time Temp Pulse Resp B/P B/P Pulse O2 O2 Flow FiO2 Mean Ox Delivery Rate 07/23 1426 Room Air 07/23 1355 98.1 92 20 128/85 99 Room Air ED Intake and Output 07/24 0000 07/23 1200 Intake Total Output Total Balance Patient 160 lb Weight Past History Travel History Traveled to [place] past 21 day No Medical History Any Pertinent Medical History? 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 No (FRANCISCO PEREZ PA-C) Review of Systems Review of Systems Constitutional: Reports: see HPI. EENTM: Reports: no symptoms. Respiratory: Reports: no symptoms. Cardiovascular: Reports: see HPI. GI: Reports: see HPI. Genitourinary: Reports: see HPI. Musculoskeletal: Reports: no symptoms. Skin: Reports: no symptoms. Neurological/Psychological: Reports: no symptoms. All Other Systems: Reviewed and Negative (FRANCISCO PEREZ PA-C) Physical Exam Physical Exam General Appearance: well developed/nourished, no apparent distress, alert, awake Comments: Patient left AGAINST MEDICAL ADVICE prior to the physical exam being conducted. Core Measures ACS in differential dx? No CVA/TIA Diagnosis: No Severe Sepsis Present: No Septic Shock Present: No (FRANCISCO PEREZ PA-C) Progress Differential Diagnoses I considered the following diagnoses in my evaluation of the patient: [Drug intoxication, drug overdose, drug withdrawal, alcohol intoxication, alcohol withdrawal, appendicitis, urinary tract infection, pyelonephritis] Initial ED EKG: none Comments: 07/23/2016 3:04:07 PM: I discussed with this patient given her symptoms I would like to do an abdominal workup with lab work and possible imaging to rule out any intra-abdominal processes due to her pain. I also discussed this patient at this hospital does not admit for opiate detox. I offered symptomatic treatment here in the emergency department as well as symptomatic treatment to be given in prescription form upon discharge as well as to give her resources for detox programs in the area. The patient refused to stay for any workup. She reported , "if you are not going to help give me methadone, I do not want to be here." (CHRIS KEARNS,FRANCISCO) Plan of Care: Orders Procedure Date/time Status EKG 07/23 1444 Active Laboratory Tests 07/23/16 1745: Lactic Acid Cancelled 07/23/16 1445: Serum Alcohol Cancelled 07/23/16 1445: Sodium Cancelled, Potassium Cancelled, Chloride Cancelled, Carbon Dioxide Cancelled, Anion Gap Cancelled, BUN Cancelled, Creatinine Cancelled, BUN/ Creatinine Ratio Cancelled, Glucose Cancelled, Lactic Acid Cancelled, Calcium Cancelled, Total Bilirubin Cancelled, Direct Bilirubin Cancelled, AST Cancelled, ALT Cancelled, Alkaline Phosphatase Cancelled, Troponin I Cancelled, Total Protein Cancelled, Albumin Cancelled, Globulin Cancelled, Albumin/Globulin Ratio Cancelled, Amylase Cancelled, Lipase Cancelled, CBC w Diff Cancelled, WBC Cancelled, RBC Cancelled, Hgb Cancelled, Hct Cancelled, MCV Cancelled, MCH Cancelled, RDW Cancelled, Plt Count Cancelled, MPV Cancelled, PUBS MCHC Cancelled, Methadone Screen Cancelled, Barbiturate Screen Cancelled, Ur Phencyclidine Scrn Cancelled, Amphetamines Screen Cancelled, U Benzodiazepines Scrn Cancelled, Urine Cocaine Screen Cancelled, Urine Cannabis Screen Cancelled, Urine Color Cancelled, Urine Clarity Cancelled, Urine pH Cancelled, Ur Specific [place] Cancelled, Urine Protein Cancelled, Urine Ketones Cancelled, Urine Nitrite Cancelled, Urine Bilirubin Cancelled, Urine Urobilinogen Cancelled, Ur Leukocyte Esterase Cancelled, Ur Microscopic Cancelled, Urine Hemoglobin Cancelled, Urine Glucose Cancelled, Urine Test Cancelled Microbiology 07/23 1444 URINE ROUT: Urine Culture - CAN Cancelled: NOT REC'D IN LAB - PATIENT DEPARTED ER Departure Departure Disposition: LEFT AGAINST MEDICAL ADVICE Condition: Stable Clinical Impression Primary Impression: Abdominal pain Qualifiers: Abdominal location: unspecified location Qualified Code: R10.9 - Unspecified abdominal pain Referrals: PATIENT HAS NO PRIMARY CARE DR (PCP/Family) Departure Forms: Customer Survey General Discharge Information (FRANCISCO PEREZ PA-C) PA/BUSINESS IMPROVEMENT MANAGER Co-Sign Statement Statement: ED Attending supervision documentation- I saw and evaluated the patient. I have also reviewed all the pertinent lab results and diagnostic results. I agree with the findings and the plan of care as documented in the PA's/BUSINESS IMPROVEMENT MANAGER's documentation. x I have reviewed the ED Record and agree with the PA's/BUSINESS IMPROVEMENT MANAGER's documentation. [] Additions or exceptions (if any) to the PAs/BUSINESS IMPROVEMENT MANAGER's note and plan are summarized below: [] (RAO JOHNSON,MELVIN) Critical Care Note Critical Care Note Critical Care Time: non-applicable (FRANCISCO PEREZ PA-C)
== END 2016-07-23 14:55 | disposition left against medical advice (07) ==
LOC: ERH 13:41
DX: R10.30 Lower abdominal pain, unspecified (principal); R07.89 Other chest pain
CPT/HCPCS: 80307; 81025; 87086; G0480

== ENCOUNTER 2016-08-06 13:50 | Emergency (ER) | payer OTHER ==
[2016-08-06 13:57] VITALS: BP 117/80
--- NOTE | 2016-08-06 14:26 | ED GI/GU/ABDOMINAL COMPLAINT ---
History of Present Illness General Chief Complaint: General Adult Stated Complaint: CONSTIPATION, HEMMROIDS Source: patient, family Exam Limitations: no limitations Vital Signs & Intake/Output Vital Signs & Intake/Output Vital Signs Date Time Temp Pulse Resp B/P B/P Pulse O2 O2 Flow FiO2 Mean Ox Delivery Rate 08/06 1357 97.8 106 16 117/80 99 Room Air Allergies Coded Allergies: NO KNOWN ALLERGIES (05/28/16) Reconcile Medications Clomipramine HCl (Anafranil) 25 MG CAPSULE 3 CAP PO QPM OCD (Reported) Escitalopram Oxalate (Lexapro 10MG) 10 MG TABLET 40 MG PO QPM MENTAL HEALTH ( Reported) Hydrocortisone 2.5 % OINT...G. 1 TRISTAN TOP TID PRN RASH apply to affected area(s) X 7 DAYS MAX Hydrocortisone/Pramoxine (Proctofoam-Hc 1%-1% Foam) 1 %-1 % FOAM 1 A RC BID PRN IRRITATED RECTUM Lidocaine HCl (Lidocaine HCl Viscous) 2 % SOLUTION 15 ML PO 4 TIMES/DAY HEMORRHOIDS APPLY TO AFFECTED AREAS Lorazepam (Ativan) 0.5 MG TAB 1 TAB PO 4 TIMES/DAY PRN ANXIETY (Reported) Methadone Hydrochloride (Methadone HCl) 10 MG TABLET 95 TAB PO DAILY UNKNOWN (Reported) Peg 3350/Na Sulf,Bicarb,Cl/KCl (Golytely Solution) 236-22.74G SOLN.RECON 1 KIT PO X1 PRN CONSTIPATION Polyethylene Glycol 3350 (Miralax) 17 GRAM/DOSE POWDER 17 GM PO DAILY CONSTIPATION mix with water, juice, soda, coffee or tea Quetiapine Fumarate (Seroquel) 300 MG TAB 1 TAB PO QPM SLEEP (Reported) Sennosides (Senna) 8.6 MG TABLET 2 TAB PO BID CONSTIPATION Tylenol With Codeine (Tylenol With Codeine #3 Tablet) 300 MG-30 MG TABLET 1 TAB PO BIDP PRN PAIN Triage Note: PT TO ED WITH CONSTIPATION AND HEMORRHOID PAIN X1 WEEK. STATES SHE HAS BEEN USING MOTRIN AND PREPARATION H WITH NO RELIEF. LAST BM X3 DAYS AGO. Triage Nurses Notes Reviewed? yes ? n Is pt currently ? No Onset: Gradual Duration: constant Timing: recent history Quality/Severity: burning, severe, stabbing, throbbing Severity Numbers: 10 Radiation: no radiation HPI: Patient is a 50-year-old female with a past medical history of opiate dependency who presents emergency room with concerns of an external hemorrhoid for the past week and which patient states that she was prescribed ibuprofen and Preparation H with no relief of symptoms. Patient states that she has tried to establish a per doctor's appointment with battery wrecker operator Dr. Martinez in which the next appointment is in August. Patient states that the symptoms feel no better with medications. Patient's last bowel movement was 2 days ago. Patient denies any fever chills melena or bright red blood after bowel movement. Denies any abdominal pain is otherwise without complaints (DORA SCHERER) Past History Travel History Traveled to [place] past 21 day No Medical History Any Pertinent Medical History? 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 No (DORA SCHERER) Review of Systems Review of Systems Constitutional: Reports: no symptoms. EENTM: Reports: no symptoms. Respiratory: Reports: no symptoms. Cardiovascular: Reports: no symptoms. GI: Reports: see HPI. Denies: abdominal pain. Genitourinary: Reports: see HPI. Musculoskeletal: Reports: no symptoms. Skin: Reports: no symptoms. Neurological/Psychological: Reports: no symptoms. Hematologic/Endocrine: Reports: no symptoms. Immunologic/Allergic: Reports: no symptoms. All Other Systems: Reviewed and Negative (DORA SCHERER) Physical Exam Physical Exam General Appearance: no apparent distress, alert, comfortable Gastrointestinal: normal bowel sounds, soft, non-tender Comments: Well-developed well-nourished person in no acute distress HEENT: Normal EENT exam, Neck: Supple, no lymphadenopathy, normal range of motion without pain or tenderness Back: Nontender, no CVA tenderness. Cardiovascular: Regular rate and rhythms no murmurs rubs or gallops, normal JVP Respiratory: Chest nontender. No respiratory distress.breath sounds clear to auscultation bilaterally Abdomen: Soft, nontender nondistended, no appreciable organomegaly. Normal bowel sounds. No ascites Extremity: No edema, no calf tenderness to palpation, normal and equal pulses. Neuro: Alert oriented x3, motor sensory normal, Rectal noted minimal nonthrombosed external hemorrhoid no active bleeding moderate point tenderness noted. No surrounding erythema warm fluctuance or induration. Rectal tone intact Skin: No appreciable rash on exposed skin, skin is warm and dry. Psych: Mood and affect is normal, memory and judgment is normal. Core Measures ACS in differential dx? No Severe Sepsis Present: No Septic Shock Present: No (DORA SCHERER) Progress Differential Diagnosis: appendicitis, biliary colic, bowel obstruction, colon cancer, cholecystitis, diverticulitis, endometritis, esophageal varices, gastritis, hepatitis, hernia, hemorrhoids, ischemic bowel, inflamm bowel dis, kidney stone, Smita-Derek tear, PUD/GERD, perforated viscous, SBO, threatened AB, UTI/pyelo Plan of Care: On examination patient has no concerns of perirectal or rectal abscess. Patient does have concerns of minimal nonthrombosed hemorrhoids however patient had requested narcotics in which I discussed with patient that narcotic medication would make patient constipated to worsening her hemorrhoids, patient was given a very short prescription of opiates to improve her breakthrough pain relief patient was strongly advised to follow-up with her battery wrecker operator. Initial ED EKG: none (DORA SCHERER) Departure Departure Disposition: HOME OR SELF CARE Condition: Stable Clinical Impression Primary Impression: Hemorrhoids, external Referrals: PATIENT HAS NO PRIMARY CARE DR (PCP/Family) Additional Instructions: As discussed continue the previously prescribed ibuprofen and Preparation H as directed for your symptoms. Begin the per prescription and a viscous lidocaine and apply as directed and begin the prescription of Tylenol with codeine for breakthrough pain relief. Prescription is waiting a [facility] pharmacy. Please follow-up with your establish a battery wrecker operator for further eval which and treatment. If symptoms worsen return to emergency room. Departure Forms: Customer Survey General Discharge Information Prescriptions: Current Visit Scripts Tylenol With Codeine (Tylenol With Codeine #3 Tablet) 1 TAB PO BIDP PRN PAIN #3 TAB Lidocaine HCl (Lidocaine HCl Viscous) 15 ML PO 4 TIMES/DAY #100 ML APPLY TO AFFECTED AREAS (DORA SCHERER) PA/DIRECTOR FUNERAL Co-Sign Statement Statement: ED Attending supervision documentation- [] I saw and evaluated the patient. I have also reviewed all the pertinent lab results and diagnostic results. I agree with the findings and the plan of care as documented in the PA's/DIRECTOR FUNERAL's documentation. [X] I have reviewed the ED Record and agree with the PA's/DIRECTOR FUNERAL's documentation. [] Additions or exceptions (if any) to the PAs/DIRECTOR FUNERAL's note and plan are summarized below: [] (MATEUS JOHNSON,LUCRETIA Barajas)
[2016-08-06] MEDS ORDERED: LIDOCAINE HCL V15 ML PO (14:37)
[2016-08-06] MEDS ORDERED: TYLENOL WITH C1 EACH PO (14:37)
== END 2016-08-06 14:56 ==
LOC: ERH 13:50
DX: K64.4 Residual hemorrhoidal skin tags (principal)

== ENCOUNTER 2016-10-15 06:12 | Emergency (ER) | payer OTHER ==
[~2016-10-15] VITALS: Ht 165.1 cm; Wt 68.0 kg
[~2016-10-15 06:12] MED LIST changes: +LIDOCAINE HCL V15 ML PO; +TYLENOL WITH C1 EACH PO
[2016-10-15 06:21] VITALS: BP 127/82
--- NOTE | 2016-10-15 06:24 | ED GENERAL ADULT ---
History of Present Illness General Chief Complaint: General Adult Stated Complaint: HEMORRHOIDS Source: patient Exam Limitations: no limitations Vital Signs & Intake/Output Vital Signs & Intake/Output Vital Signs Date Time Temp Pulse Resp B/P B/P Pulse O2 O2 Flow FiO2 Mean Ox Delivery Rate 10/15 0626 99 Room Air 10/15 0621 96.1 89 18 127/82 99 Room Air Allergies Coded Allergies: NO KNOWN ALLERGIES (05/28/16) Reconcile Medications Clomipramine HCl (Anafranil) 25 MG CAPSULE 3 CAP PO QPM OCD (Reported) Escitalopram Oxalate (Lexapro 10MG) 10 MG TABLET 40 MG PO QPM MENTAL HEALTH ( Reported) Hydrocortisone 2.5 % OINT...G. 1 TRISTAN TOP TID PRN RASH apply to affected area(s) X 7 DAYS MAX Hydrocortisone/Pramoxine (Proctofoam-Hc 1%-1% Foam) 1 %-1 % FOAM 1 A RC BID PRN IRRITATED RECTUM Lidocaine HCl (Lidocaine HCl Viscous) 2 % SOLUTION 15 ML PO 4 TIMES/DAY HEMORRHOIDS APPLY TO AFFECTED AREAS Lorazepam (Ativan) 0.5 MG TAB 1 TAB PO 4 TIMES/DAY PRN ANXIETY (Reported) Meloxicam (Mobic) 15 MG TABLET 1 TAB PO DAILY PRN PAIN Methadone Hydrochloride (Methadone HCl) 10 MG TABLET 95 TAB PO DAILY UNKNOWN (Reported) Peg 3350/Na Sulf,Bicarb,Cl/KCl (Golytely Solution) 236-22.74G SOLN.RECON 1 KIT PO X1 PRN CONSTIPATION Polyethylene Glycol 3350 (Miralax) 17 GRAM/DOSE POWDER 17 GM PO DAILY CONSTIPATION mix with water, juice, soda, coffee or tea Quetiapine Fumarate (Seroquel) 300 MG TAB 1 TAB PO QPM SLEEP (Reported) Sennosides (Senna) 8.6 MG TABLET 2 TAB PO BID CONSTIPATION Tylenol With Codeine (Tylenol With Codeine #3 Tablet) 300 MG-30 MG TABLET 1 TAB PO BIDP PRN PAIN Triage Nurses Notes Reviewed? yes Onset: Abrupt Duration: week(s): Timing: recent history HPI: 10/15/16 6:36 AM 50-year-old female presents to the emergency department with a painful hemorrhoid over the past 2 months. The patient states she had been constipated and has had 2 months of rectal pain. She's using Tucks pads and Preparation H with minimal relief. On physical examination she does have an external hemorrhoid. It does not appear to be acutely thrombosed. She was treated with lidocaine jelly. Onset of the pain was abrupt, duration was months, severity is significant as it required her to come to the emergency department for care. Past History Travel History Traveled to [place] past 21 day No Medical History Any Pertinent Medical History? 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 No Review of Systems Review of Systems Constitutional: Denies: chills. EENTM: Reports: no symptoms. Respiratory: Denies: short of breath. Cardiovascular: Denies: chest pain. GI: Denies: abdominal pain. Genitourinary: Reports: no symptoms. Musculoskeletal: Reports: no symptoms. Skin: Reports: no symptoms. Neurological/Psychological: Reports: no symptoms. Hematologic/Endocrine: Denies: bleeding. Physical Exam Physical Exam General Appearance: well developed/nourished, alert, awake, anxious, mild distress Head: atraumatic, normal appearance Eyes: Bilateral: normal appearance, PERRL, EOMI. Ears, Nose, Throat: normal pharynx, normal ENT inspection Neck: normal inspection, supple Respiratory: normal breath sounds, chest non-tender, no respiratory distress Cardiovascular: regular rate/rhythm Peripheral Pulses: 4+ radial (R), 4+ radial (L) Gastrointestinal: soft, non-tender Rectal: EXTERNAL, NOT ACUTELY THROMBOSED HEMORRHOID, MINIMALLY TENDER, NO DEEP RECTAL TENDERNESS, GUAIAC NEGATIVE Back: normal inspection Extremities: no edema Neurologic/Psych: no motor/sensory deficits, awake, alert, oriented x 3 Skin: intact, normal color, warm/dry Core Measures ACS in differential dx? No CVA/TIA Diagnosis: No Severe Sepsis Present: No Septic Shock Present: No Progress Differential Diagnoses I considered the following diagnoses in my evaluation of the patient: Plan of Care: Follow-up with her rectal surgeon as scheduled. Continue warm soaks. Tucks pads. Mobic was given for pain. Initial ED EKG: none Departure Departure Disposition: HOME OR SELF CARE Condition: Stable Clinical Impression Primary Impression: External hemorrhoids Referrals: PATIENT HAS NO PRIMARY CARE DR (PCP/Family) Departure Forms: Customer Survey General Discharge Information Prescriptions: Current Visit Scripts Meloxicam (Mobic) 1 TAB PO DAILY PRN PAIN #10 TAB Critical Care Note Critical Care Note Critical Care Time: non-applicable
[2016-10-15] MEDS ORDERED: MOBIC15 M1 PO (06:41)
[2016-10-17] MEDS ORDERED: TYLENOL WITH C1 EACH PO (12:27)
== END 2016-10-15 06:46 ==
LOC: ERH 06:12
DX: K64.4 Residual hemorrhoidal skin tags (principal)

== ENCOUNTER 2017-04-11 07:30 | Emergency (ER) | payer OTHER ==
[~2017-04-11] VITALS: Ht 167.6 cm; Wt 68.0 kg
[~2017-04-11 07:30] MED LIST changes: +AMOXICILLIN500 M3 PO; +AMOXICILLIN875 M1 PO; +ANUSOL-HC30 GM TOP; +COLACE100 M1 PO; +IBUPROFEN800 M1 PO; +INDOMETHACIN50 M1 PO; +MOBIC15 M1 PO; +PERCOCET 5-3251 EACH PO
[2017-04-11 07:34] VITALS: BP 118/77
--- NOTE | 2017-04-11 08:41 | ED ANKLE/FOOT INJURY COMPLAINT ---
See Addendum History of Present Illness General Chief Complaint: General Adult Stated Complaint: TOOTH PAIN/R FOOT PAIN Source: patient Exam Limitations: no limitations Vital Signs & Intake/Output Vital Signs & Intake/Output Vital Signs Date Time Temp Pulse Resp B/P B/P Pulse O2 O2 Flow FiO2 Mean Ox Delivery Rate 04/11 0734 98.2 83 18 118/77 98 Room Air Allergies Coded Allergies: No Known Allergies (12/06/16) Reconcile Medications Amoxicillin 500 MG TABLET 1 TAB PO TID PRN dental infection Amoxicillin 875 MG TABLET 1 TAB PO BID gingivitis Clomipramine HCl (Anafranil) 25 MG CAPSULE 3 CAP PO QPM OCD (Reported) Docusate Sodium (Colace) 100 MG CAPSULE 1 CAP PO BID constipation Escitalopram Oxalate (Lexapro 10MG) 10 MG TABLET 40 MG PO QPM MENTAL HEALTH ( Reported) Hydrocortisone 2.5 % OINT...G. 1 TRISTAN TOP TID PRN RASH apply to affected area(s) X 7 DAYS MAX Hydrocortisone (Anusol-Hc) 2.5 % CREAM..G. 1 TRISTAN TOP BID hemorrhoids apply to affected area(s) Hydrocortisone/Pramoxine (Proctofoam-Hc 1%-1% Foam) 1 %-1 % FOAM 1 A RC BID PRN IRRITATED RECTUM Ibuprofen 800 MG TABLET 1 TAB PO TID PRN pain Indomethacin 50 MG CAPSULE 1 CAP PO TID pain with food Lidocaine HCl (Lidocaine HCl Viscous) 2 % SOLUTION 15 ML PO 4 TIMES/DAY HEMORRHOIDS APPLY TO AFFECTED AREAS Lorazepam (Ativan) 0.5 MG TAB 1 TAB PO 4 TIMES/DAY PRN ANXIETY (Reported) Meloxicam (Mobic) 15 MG TABLET 1 TAB PO DAILY PRN PAIN Methadone Hydrochloride (Methadone HCl) 10 MG TABLET 95 TAB PO DAILY UNKNOWN (Reported) Oxycodone HCl/Acetaminophen (Percocet 5-325 MG Tablet) 5 MG-325 MG TABLET 1 TAB PO BID PRN BREAKTHROUGH PAIN Oxycodone HCl/Acetaminophen (Percocet 5-325 MG Tablet) 5 MG-325 MG TABLET 1 TAB PO EVERY 6HRS- NEEDED PRN rectal pain Oxycodone HCl/Acetaminophen (Percocet 5-325 MG Tablet) 5 MG-325 MG TABLET 1 TAB PO Q6HR PRN pain Peg 3350/Na Sulf,Bicarb,Cl/KCl (Golytely Solution) 236-22.74G SOLN.RECON 1 KIT PO X1 PRN CONSTIPATION Polyethylene Glycol 3350 (Miralax) 17 GRAM/DOSE POWDER 17 GM PO DAILY CONSTIPATION mix with water, juice, soda, coffee or tea Quetiapine Fumarate (Seroquel) 300 MG TAB 1 TAB PO QPM SLEEP (Reported) Sennosides (Senna) 8.6 MG TABLET 2 TAB PO BID CONSTIPATION Tylenol With Codeine (Tylenol With Codeine #3 Tablet) 300 MG-30 MG TABLET 1 TAB PO TIDP PRN pain Tylenol With Codeine (Tylenol With Codeine #3 Tablet) 300 MG-30 MG TABLET 1-2 TAB PO BIDP PRN pain Tylenol With Codeine (Tylenol With Codeine #3 Tablet) 300 MG-30 MG TABLET 1-2 TAB PO Q6P PRN severe pain Tylenol With Codeine (Tylenol With Codeine #3 Tablet) 300 MG-30 MG TABLET 1 TAB PO BIDP PRN PAIN Triage Note: 51 YO FEMALE TO TRIAGE C/O R FOOT PAIN, STATES SHE HAS A KNOWN BONE SPUR THAT NEEDS TO BE OPERATED ON, ALSO C/O PAIN TO 2 TEETH, STATES 2 OF HER CAPS FELL OFF. PT HAS NOT SEEN A FOOT DR OR A DENTIST, STATES SHE IS TO BUSY. Triage Nurses Notes Reviewed? yes HPI: Ms. Garcia is a 51 yo f with a PMH significant for opiod dependence who present to the ED with R foot pain. Patient reports "I was here the other day and got some Percocet...can you just give me more percocets?". She reports she was not able to see the carburetor specialist that she was referred to on her previous visit to the ED 2 days ago because she did not have time. She also reports a toothache and reports she has not followed up with her dentist. She denies nausea, vomiting, ROJAS, weakness, paresthesias, urinary or bowel symptoms. Past History Travel History Traveled to [place] past 21 day No Medical History Any Pertinent Medical History? 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 Yes Review of Systems Review of Systems Constitutional: Reports: see HPI. Physical Exam Physical Exam General Appearance: well developed/nourished, no apparent distress, alert, awake , anxious Head: atraumatic, normal appearance Eyes: Bilateral: normal appearance, PERRL, EOMI. Ears, Nose, Throat: normal ENT inspection Neck: normal inspection Cardiovascular/Respiratory: normal breath sounds Back: normal inspection Leg/Knee/Thigh Left: normal range of motion, normal inspection Leg/Knee/Thigh Right: normal range of motion, normal inspection Ankle Left: normal inspection Ankle Right: normal inspection Foot Left: normal inspection Foot Right: bone tenderness Progress Differential Diagnosis: gout, dislocation, sprain Plan of Care: Patient eloped prior to receiving medical management Departure Departure Disposition: HOME OR SELF CARE Condition: Stable Clinical Impression Primary Impression: Foot pain, right Referrals: Patient Has No Primary Care Dr (PCP/Family) Departure Forms: Customer Survey General Discharge Information
== END 2017-04-11 09:09 | disposition admitted as inpatient to this hospital (09) ==
LOC: ERH 07:30
DX: Z53.21 Procedure and treatment not carried out due to patient leaving prior to being seen by health care provider (principal); M79.671 Pain in right foot; K08.89 Other specified disorders of teeth and supporting structures

== ENCOUNTER 2017-11-07 07:22 | Emergency (ER) | payer OTHER ==
[~2017-11-07] VITALS: Ht 167.6 cm; Wt 73.9 kg
[~2017-11-07 07:22] MED LIST changes: +AUGMENTIN 875-1 EACH PO; +HYDROXYZINE HCL50 M1 PO; +PREDNISONE10 M2 PO
[2017-11-07 07:25] VITALS: BP 120/80
--- NOTE | 2017-11-07 07:43 | ED ANKLE/FOOT INJURY COMPLAINT ---
History of Present Illness General Chief Complaint: General Adult Stated Complaint: MULTIPLE COMPLAINTS Source: patient, family, old records Exam Limitations: no limitations Vital Signs & Intake/Output Vital Signs & Intake/Output Vital Signs Date Time Temp Pulse Resp B/P B/P Pulse O2 O2 Flow FiO2 Mean Ox Delivery Rate 11/07 0742 97 Room Air 11/07 0725 98.0 75 20 120/80 96 Room Air Allergies Coded Allergies: No Known Allergies (05/31/17) Reconcile Medications Amoxicillin 250 MG CAPSULE 1 CAP PO TID PUNCTURE WOUND Amoxicillin 500 MG TABLET 1 TAB PO TID PRN dental infection Amoxicillin 875 MG TABLET 1 TAB PO BID gingivitis Amoxicillin/Potassium Clav (Augmentin 875-125 Tablet) 875 MG-125 MG TABLET 1 TAB PO BID DENTAL INFECTION Clomipramine HCl (Anafranil) 25 MG CAPSULE 3 CAP PO QPM OCD (Reported) Docosanol (Abreva) 10 % CREAM..G. 1 TRISTAN TOP Q6P PRN COLD SORE Docusate Sodium (Colace) 100 MG CAPSULE 1 CAP PO BID constipation Escitalopram Oxalate (Lexapro 10MG) 10 MG TABLET 40 MG PO QPM MENTAL HEALTH ( Reported) Hydrocortisone 2.5 % OINT...G. 1 TRISTAN TOP TID PRN RASH apply to affected area(s) X 7 DAYS MAX Hydrocortisone (Anusol-Hc) 2.5 % CREAM..G. 1 TRISTAN TOP BID hemorrhoids apply to affected area(s) Hydrocortisone/Pramoxine (Proctofoam-Hc 1%-1% Foam) 1 %-1 % FOAM 1 A RC BID PRN IRRITATED RECTUM Hydroxyzine Hydrochloride (Atarax) 50 MG TAB 1 TAB PO TID PRN ITCHING Ibuprofen 800 MG TABLET 1 TAB PO TID PRN pain Ibuprofen 800 MG TABLET 1 TAB PO TID pain Ibuprofen 800 MG TABLET 1 TAB PO TID PRN PAIN Indomethacin 50 MG CAPSULE 1 CAP PO TID pain with food Lidocaine HCl (Lidocaine HCl Viscous) 2 % SOLUTION 15 ML PO 4 TIMES/DAY HEMORRHOIDS APPLY TO AFFECTED AREAS Lorazepam (Ativan) 0.5 MG TAB 1 TAB PO 4 TIMES/DAY PRN ANXIETY (Reported) Meloxicam (Mobic) 15 MG TABLET 1 TAB PO DAILY PRN PAIN Methadone Hydrochloride (Methadone HCl) 10 MG TABLET 95 TAB PO DAILY UNKNOWN (Reported) Oxycodone HCl/Acetaminophen (Percocet 5-325 MG Tablet) 5 MG-325 MG TABLET 1 TAB PO 4 TIMES/DAY PRN SEVERE PAIN Oxycodone HCl/Acetaminophen (Percocet 5-325 MG Tablet) 5 MG-325 MG TABLET 1 TAB PO BID PRN BREAKTHROUGH PAIN Oxycodone HCl/Acetaminophen (Percocet 5-325 MG Tablet) 5 MG-325 MG TABLET 1-2 TAB PO BID pain Oxycodone HCl/Acetaminophen (Percocet 5-325 MG Tablet) 5 MG-325 MG TABLET 1 TAB PO EVERY 6HRS- NEEDED PRN rectal pain Oxycodone HCl/Acetaminophen (Percocet 5-325 MG Tablet) 5 MG-325 MG TABLET 1 TAB PO Q6HR PRN pain Peg 3350/Na Sulf,Bicarb,Cl/KCl (Golytely Solution) 236-22.74G SOLN.RECON 1 KIT PO X1 PRN CONSTIPATION Polyethylene Glycol 3350 (Miralax) 17 GRAM/DOSE POWDER 17 GM PO DAILY CONSTIPATION mix with water, juice, soda, coffee or tea Prednisone 10 MG TABLET 1 DOSE PO ONCE DAILY CONTACT DERMATITIS 5 TABS X 3 DAYS THEN 4 TABS X 3 DAYS 3 TABS X 3 DAYS 2 TABS X 3 DAYS 1 TAB X 3 DAYS Quetiapine Fumarate (Seroquel) 300 MG TAB 1 TAB PO QPM SLEEP (Reported) Sennosides (Senna) 8.6 MG TABLET 2 TAB PO BID CONSTIPATION Tylenol With Codeine (Tylenol With Codeine #3 Tablet) 300 MG-30 MG TABLET 1 TAB PO TIDP PRN pain Tylenol With Codeine (Tylenol With Codeine #3 Tablet) 300 MG-30 MG TABLET 1-2 TAB PO BIDP PRN pain Tylenol With Codeine (Tylenol With Codeine #3 Tablet) 300 MG-30 MG TABLET 1-2 TAB PO Q6P PRN severe pain Tylenol With Codeine (Tylenol With Codeine #3 Tablet) 300 MG-30 MG TABLET 1 TAB PO BIDP PRN PAIN Triage Note: PT TO ED C/O LEFT MOUTH PAIN AND LEFT FOOT PAIN. STATES SHE STEPPED ON PLASTIC LAST WEEK. ALSO C/O CONTINUED POISON KANE. Triage Nurses Notes Reviewed? yes HPI: The patient comes in to the emergency department with 3 complaints. Her first and main complaint is that she stepped on plastic onto her right heel 2 days ago. Patient states that since then she has had a foul odor discharge from there. She describes a throbbing pain when she ambulates. There is no pain when she's not ambulating. The pain is in the area where she stepped on a piece of plastic and there is no radiation. At its worst it is 6 out of 10. Her other complaint is a small ulcer to the corner of her lips. She noticed this yesterday. She has a chronic burning pain to that area. There is no radiation. There are no aggravating or mitigating factors. She rates that pain is 4 out of 10. Her third complaint is the police and she'll ask that she was recently diagnosed with. She states that it is getting better on the steroids that she is taking. Past History Travel History Traveled to [place] past 21 day No Medical History Any Pertinent Medical History? 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 No Review of Systems Review of Systems Constitutional: Reports: no symptoms. EENTM: Reports: see HPI. Respiratory: Reports: no symptoms. Cardiovascular: Reports: no symptoms. Musculoskeletal: Reports: see HPI. Neurological/Psychological: Reports: no symptoms. Immunologic/Allergic: Reports: no symptoms. Physical Exam Physical Exam General Appearance: well developed/nourished, alert, awake Head: atraumatic Eyes: Bilateral: PERRL, EOMI. Ears, Nose, Throat: SMALL COLDSORETOCORNER TO MOUTH Neck: normal inspection, supple, full range of motion Cardiovascular/Respiratory: normal breath sounds, normal peripheral pulses, regular rate/rhythm, no respiratory distress Leg/Knee/Thigh Left: normal range of motion, normal inspection Leg/Knee/Thigh Right: normal range of motion, normal inspection Foot Left: sMALL PUNCTURE WOUND TO HER HEEL, NO ACTIVE DRAINAGE. Neuro/Vascular: normal motor function, normal sensation Psychiatric: awake, alert, oriented x 3 Progress Differential Diagnosis: contusion, FB Plan of Care: Orders Procedure Date/time Status XRY-FOOT COMPLETE, RIGHT 11/07 741 Active Diagnostic Imaging: Viewed by Me: Radiology Read. Discussed w/RAD: Radiology Read. Radiology Impression: PATIENT: GERALDO FOX PRESENT AGE: 51 PATIENT ACCOUNT NO: [id number] : 66 LOCATION: [facility] ORDERING PHYSICIAN: Darvin Haywood MD SERVICE DATE: 11/07/17 EXAM TYPE: RAD - XRY-FOOT COMPLETE, R EXAMINATION: XR FOOT, RIGHT CLINICAL INFORMATION: Foreign body stepped on plastic. COMPARISON: None TECHNIQUE: AP, lateral, and oblique views of the right foot. FINDINGS: There is a subtle irregularity the superficial subcutaneous soft tissues in the calcaneal fat pad area which could reflect a soft tissue defect related to the patient's reported recent trauma. I do not see a radiopaque foreign body. There are plantar and posterior calcaneal spurs. There is mild arthrosis of the first metatarsophalangeal joint and IP joint of the great toe IMPRESSION: No radiopaque foreign body identified. Question soft tissue defect overlying the calcaneal fat pad perhaps related to reported recent trauma. Osteoarthritis DICTATED BY: Myles Carrillo MD DATE/ TIME DICTATED:11/07/17822 MANAGER TRAVEL:[place] DATE/TIME TRANSCRIBED: 11/07/17822 CONFIDENTIAL, DO NOT COPY WITHOUT APPROPRIATE AUTHORIZATION. < Electronically signed in Other Vendor System> SIGNED BY: Myles Carrillo MD 11/07/17828 Departure Departure Disposition: HOME OR SELF CARE Condition: Stable Clinical Impression Primary Impression: Cold sore Secondary Impressions: Puncture wound of foot Referrals: Berlin Wolff DPM Patient Has No Primary Care Dr (PCP/Family) Additional Instructions: Follow-up with Dr. Wolff. Take antibiotics as prescribed. Use of previously stated for a cold sore. Take Motrin as needed for the pain. Return if symptoms worsen or for any concerns. Departure Forms: Customer Survey General Discharge Information Prescriptions: Current Visit Scripts Docosanol (Abreva) 1 TRISTAN TOP Q6P PRN COLD SORE #15 GR Amoxicillin 1 CAP PO TID #30 CAP Ibuprofen 1 TAB PO TID PRN PAIN #30 TAB
[2017-11-07] MEDS ORDERED: AMOXICILLIN250 M3 PO (08:26)
[2017-11-07] MEDS ORDERED: ABREVA2 GM TOP (08:26)
[2017-11-07] MEDS ORDERED: IBUPROFEN800 M1 PO (08:27)
--- NOTE | 2017-11-07 08:29 | RADIOLOGY REPORT ---
EXAMINATION: XR FOOT, RIGHT CLINICAL INFORMATION: Foreign body stepped on plastic. COMPARISON: None TECHNIQUE: AP, lateral, and oblique views of the right foot. FINDINGS: There is a subtle irregularity the superficial subcutaneous soft tissues in the calcaneal fat pad area which could reflect a soft tissue defect related to the patient's reported recent trauma. I do not see a radiopaque foreign body. There are plantar and posterior calcaneal spurs. There is mild arthrosis of the first metatarsophalangeal joint and IP joint of the great toe IMPRESSION: No radiopaque foreign body identified. Question soft tissue defect overlying the calcaneal fat pad perhaps related to reported recent trauma. Osteoarthritis
== END 2017-11-07 08:38 ==
LOC: ERH 07:22
DX: S91.331A Puncture wound without foreign body, right foot, initial encounter (principal); B00.1 Herpesviral vesicular dermatitis; W45.8XXA Other foreign body or object entering through skin, initial encounter; Y92.9 Unspecified place or not applicable; Y93.9 Activity, unspecified
CPT/HCPCS: 73630-RT

== ENCOUNTER 2017-11-28 09:19 | Emergency (ER) | payer OTHER ==
[~2017-11-28] VITALS: Ht 165.1 cm; Wt 70.8 kg
[~2017-11-28 09:19] MED LIST changes: +ABREVA2 GM TOP; +AMOXICILLIN250 M3 PO
[2017-11-28 09:25] VITALS: BP 149/73
--- NOTE | 2017-11-28 10:01 | ED GENERAL ADULT ---
History of Present Illness General Chief Complaint: General Adult Stated Complaint: RASH ALL OVER BODY AND TOOTHACHE Source: patient, family, old records Exam Limitations: no limitations Vital Signs & Intake/Output Vital Signs & Intake/Output ED Intake and Output 11/29 0000 11/28 1200 Intake Total 0 Output Total Balance 0 Intake, Oral 0 Patient 156 lb Weight Weight Reported by Patient Measurement Method Allergies Coded Allergies: No Known Allergies (05/31/17) Reconcile Medications Clomipramine HCl (Anafranil) 25 MG CAPSULE 3 CAP PO QPM OCD (Reported) Docosanol (Abreva) 10 % CREAM..G. 1 TRISTAN TOP Q6P PRN COLD SORE Docusate Sodium (Colace) 100 MG CAPSULE 1 CAP PO BID constipation Escitalopram Oxalate (Lexapro 10MG) 10 MG TABLET 40 MG PO QPM MENTAL HEALTH ( Reported) Hydrocortisone 2.5 % OINT...G. 1 TRISTAN TOP TID PRN RASH apply to affected area(s) X 7 DAYS MAX Hydroxyzine Hydrochloride (Atarax) 50 MG TAB 1 TAB PO TID PRN ITCHING Hydroxyzine Hydrochloride (Atarax) 50 MG TAB 1 TAB PO TID PRN ICTHING Ibuprofen 800 MG TABLET 1 TAB PO TID PRN PAIN Indomethacin 50 MG CAPSULE 1 CAP PO TID pain with food Lorazepam (Ativan) 0.5 MG TAB 1 TAB PO 4 TIMES/DAY PRN ANXIETY (Reported) Meloxicam (Mobic) 15 MG TABLET 1 TAB PO DAILY PRN PAIN Methadone Hydrochloride (Methadone HCl) 10 MG TABLET 95 TAB PO DAILY UNKNOWN (Reported) Oxycodone HCl/Acetaminophen (Percocet 5-325 MG Tablet) 5 MG-325 MG TABLET 1 TAB PO 4 TIMES/DAY PRN PAIN Oxycodone HCl/Acetaminophen (Percocet 5-325 MG Tablet) 5 MG-325 MG TABLET 1-2 TAB PO BID pain Quetiapine Fumarate (Seroquel) 300 MG TAB 1 TAB PO QPM SLEEP (Reported) Triage Note: PT TO ED WITH C/O RASH ALL OVER THE BODY, RECENTLY GOT A NEW CAT, ALSO BEEN TAKING CARE OF A NEIGHBOR. PT ALSO C/O 2 TEETH "FILLINGS FELL OUT, I NEED A ORAL SURGEON, BUT I CAN'T FIND ONE THAT TAKES MY INSURANCE". Triage Nurses Notes Reviewed? yes Onset: Abrupt Duration: week(s): (4), better, changing over time, continues in ED Timing: recent history LMP (ages 10-50): post menopausal : No Patient currently breastfeeds: No HPI: 51-year-old female history of depression opioid dependence presents for evaluation of multiple complaints. Her first issue is this ongoing rash. Patient was treated for a contact dermatitis several weeks ago with steroid taper. She feels like the rash is improved but still present and sometimes is itchy. The rash is mostly located on her bilateral extremities. She is concerned because she recently got a cat and is taking care of a sick friend thinks she may have gotten it from one of these exposures. She denies any swelling difficulty breathing difficulty swallowing. The rash does appear to be fading but is still present. Her second complaint is dental issues. She states she recently saw a dentist last week and was told some of her fillings fell out and she needs to see an oral surgeon. She states she has not yet made an appointment with one she cannot find one that takes her insurance. She states she occasionally will have pain especially when eating. She denies any swelling or fever. She is tolerating fluids. She has no difficulty breathing or difficulty swallowing. She's been taking ibuprofen and Orajel without any improvement. No drooling. No sore throat. (Kurtis Chavis) Past History Travel History Traveled to [place] past 21 day No Medical History Any Pertinent Medical History? 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 No (Kurtis Chavis) Review of Systems Review of Systems Constitutional: Reports: no symptoms. EENTM: Reports: mouth pain, tooth pain. Respiratory: Reports: no symptoms. Cardiovascular: Reports: no symptoms. GI: Reports: no symptoms. Genitourinary: Reports: no symptoms. Musculoskeletal: Reports: no symptoms. Skin: Reports: see HPI, rash. Neurological/Psychological: Reports: no symptoms. Hematologic/Endocrine: Reports: no symptoms. Immunologic/Allergic: Reports: no symptoms. All Other Systems: Reviewed and Negative (Kurtis Chavis) Physical Exam Physical Exam General Appearance: well developed/nourished, no apparent distress, alert, awake Head: atraumatic, normal appearance Eyes: Bilateral: normal appearance, PERRL, EOMI. Ears, Nose, Throat: hearing grossly normal, multiple dental caries present. No erythema no swelling no focal function areas no discharge no trismus no lymphadenopathy patient is handling secretions no tonsillar swelling or exudate no uvular deviation Neck: normal inspection, supple, full range of motion Respiratory: normal breath sounds, chest non-tender, lungs clear Cardiovascular: regular rate/rhythm, normal peripheral pulses Peripheral Pulses: 2+ radial (R), 2+ radial (L) Gastrointestinal: soft, non-tender Back: normal inspection, normal range of motion Extremities: normal inspection, normal range of motion, no edema Neurologic/Psych: no motor/sensory deficits, awake, alert, oriented x 3, normal gait, normal mood/affect Skin: intact, normal color, warm/dry, rash, There are several healing papular lesions to the bilateral lower extremities and bilateral upper extremities. The rash appears significantly improved from previous exam with patient was seen for contact dermatitis. There's no underlying erythema no purulent discharge no burrows Lymphatic: no anterior cervical rafael Core Measures ACS in differential dx? No CVA/TIA Diagnosis: No Sepsis Present: No Sepsis Focused Exam Completed? No (Kurtis Chavis) Progress Differential Diagnoses I considered the following diagnoses in my evaluation of the patient: [dental infection/abscess, contact dermatitis, ] Plan of Care: Patient is here with multiple complaints. She has a rash that appears to be significantly improved from previous she also has dental issues. She is to see an oral surgeon because several fillings fell out. She does not have any signs of infection both on her skin or in her mouth. She denies secretions is afebrile vital signs stable. Patient was given a prescription for hydroxyzine to use for additional itching. Advised her that the rash will continue to fade away and improved. Advised continuing ibuprofen and Orajel. Percocet for severe pain only. She is given a list of oral surgeons in the area. Discussed return precautions patient agrees the plan Initial ED EKG: none (Kurtis Chavis) Departure Departure Disposition: HOME OR SELF CARE Condition: Stable Clinical Impression Primary Impression: Pain, dental Secondary Impressions: Rash and nonspecific skin eruption Referrals: Sondra JOHNSON,Louie Duenas MD,Curt Ozuna MD,John WORTHY MD,NICOLE Barajas Patient Has No Primary Care Dr (PCP/Family) Additional Instructions: Make a follow-up appointment with one of the provided primary care doctors as soon as possible. YOU will also need to see a dentist/oral surgeon as soon as possible make a follow-up with one of the provided dental clinics. Use hydroxyzine as needed for itching. Continue ibuprofen for pain Percocet for severe pain only. Return with any concerns. Departure Forms: Customer Survey General Discharge Information Prescriptions: Current Visit Scripts Hydroxyzine Hydrochloride (Atarax) 1 TAB PO TID PRN ICTHING #30 TAB Oxycodone HCl/Acetaminophen (Percocet 5-325 MG Tablet) 1 TAB PO 4 TIMES/DAY PRN PAIN #4 TAB (Kurtis Chavis) PA/PEST CONTROL WORKER Co-Sign Statement Statement: ED Attending supervision documentation- [] I saw and evaluated the patient. I have also reviewed all the pertinent lab results and diagnostic results. I agree with the findings and the plan of care as documented in the PA's/PEST CONTROL WORKER's documentation. [x] I have reviewed the ED Record and agree with the PA's/PEST CONTROL WORKER's documentation. [] Additions or exceptions (if any) to the PAs/PEST CONTROL WORKER's note and plan are summarized below: [] (Mauricio JOHNSON,[facility]) Critical Care Note Critical Care Note Critical Care Time: non-applicable (Kurtis Chavis)
[2017-11-28] MEDS ORDERED: HYDROXYZINE HCL50 M1 PO (10:09)
[2017-11-28] MEDS ORDERED: PERCOCET 5-3251 EACH PO (10:09)
== END 2017-11-28 10:18 ==
LOC: ERH 09:19
DX: K08.89 Other specified disorders of teeth and supporting structures (principal); R21 Rash and other nonspecific skin eruption